=== PATIENT | male | born 1970 | race Caucasian/White ===

== ENCOUNTER 2020-12-24 12:23 | Emergency (ER) | payer OTHER, SELFPAY ==
--- NOTE | ~2020-12-24 | CT_ITS ---
EXAMINATION: CT ABDOMEN AND PELVIS WITHOUT CONTRAST CLINICAL INFORMATION: Left-sided abdominal pain. Rule out kidney stone versus diverticulitis COMPARISON: None TECHNIQUE: Multidetector volumetric imaging was performed from the superior aspect of the liver through the pubic symphysis. Sagittal and coronal reformatted images were obtained on the technologist's workstation. This CT examination was performed using dose optimization techniques as appropriate, variously including the following: *Automated exposure control *Adjustment of mA and/or kV according to patient size (this includes techniques or standardized protocols for targeted exams where dose is matched to indication/reason for exam; i.e. extremities or head) *Use of iterative reconstruction technique DLP: 1223 mGy-cm FINDINGS: LUNG BASES: The visualized lung bases are unremarkable. LIVER, GALLBLADDER, AND BILIARY TREE: The liver is low in attenuation suggestive of fatty infiltration. Liver slightly enlarged, right lobe measuring 20 cm in length. No focal liver lesion is seen. The gallbladder is normal. There is no biliary duct dilatation. PANCREAS: Unremarkable. SPLEEN: Unremarkable. ADRENAL GLANDS: Unremarkable. KIDNEYS AND URETERS: There is cortical thinning or scarring of the upper pole of the right kidney. The kidneys are otherwise normal. BLADDER: Unremarkable. GASTROINTESTINAL TRACT: There is diverticulosis of the colon. There is wall thickening of the distal left or proximal sigmoid colon and stranding of the surrounding fat suggestive of mild diverticulitis. No evidence of obstruction, perforation or abscess is seen. The small and large bowel are otherwise unremarkable. The appendix is unremarkable. ABDOMINAL WALL: No significant hernia is appreciated. LYMPH NODES: Normal. VASCULAR: Unremarkable. PELVIC VISCERA: Unremarkable. OSSEOUS STRUCTURES: Unremarkable. CT/CT abdomen pelvis wo con IMPRESSION: Mild diverticulitis of the distal left/proximal sigmoid colon. Enlarged fatty liver. Cortical thinning or scarring of the right kidney.
[2020-12-24 12:33] VITALS: BP 152/89; PULSE 82; RESP 18; TEMP 36.8; O2SAT 98; BMI 34.0
[2020-12-24 14:00] VITALS: BP 139/89; PULSE 84; RESP 18; TEMP 36.5; O2SAT 97
[2020-12-24 14:42] LABS: MANUAL DIFF FLAG NO
[2020-12-24 14:43] LABS: Basophils Absolute Auto 0.1 X10*3/uL (0.0-0.2); Basophils Percent Auto 0.7 % (0-2); Eosinophils Absolute Auto 0.3 X10*3/uL (0.0-0.4); Eosinophils Percent Auto 2.6 % (0-4); Hematocrit 42.7 % (42-52); Hemoglobin 14.8 g/dl (14.0-18.0); Imm Gran Abs Auto 0.04 X10*3/uL (0.00-0.03); Imm Gran Pct Auto 0.3 % (0.0-0.4); Lymphocytes Absolute Auto 3.3 X10*3/uL (1.2-4.9); Lymphocytes Percent Auto 28.4 % (20-40); Mean Corpuscular HGB Conc 34.7 g/dl (31.0-36.0); Mean Corpuscular Hemoglobin 30.2 pg (27.0-33.0); Mean Corpuscular Volume 87.1 fL (80-98); Mean Platelet Volume 10.3 fL (9.4-12.4); Monocytes Absolute Auto 1.2 X10*3/uL (0.1-1.2); Monocytes Percent Auto 9.9 % (2-11); Neutrophils Absolute Auto 6.7 X10*3/uL (2.0-8.3); Neutrophils Percent Auto 58.1 % (45-73); Platelet Count 360 X10*3/uL (160-400); Red Cell Distribution Width 14.5 % (11.0-16.0); White Blood Count 11.6 X10*3/uL (4.8-10.8)
--- NOTE | 2020-12-24 14:47 | PC.NURSE ---
iv inserted, labs drawn, pt aware we need urine
--- NOTE | 2020-12-24 14:51 | ED.ABDPAIN ---
HPI - Abdominal Pain General Chief Complaint: Abdominal Pain Stated Complaint: low abd pain Time Seen by Provider: 12/24/20 14:50 Source: patient, family and educational interpreter Mode of arrival: ambulatory Limitations: no limitations History of Present Illness HPI narrative: This is a 50-year-old male came in for evaluation of her abdominal pain. Pain started about week ago, pain is left lower abdominal area radiates to left flank area, pain is constant described as dull aching pain 5/10, no releasing factor, no aggravating factor, no other associated symptoms no nausea, no vomiting, no diarrhea, no blood in the urine, no fever, no chills. Never had similar pain in the past. Related Data Previous Rx's Medication Instructions Recorded ciprofloxacin HCl 500 mg tablet 500 mg PO Q12H #20 tab 12/24/20 (Cipro) ibuprofen 400 mg tablet 400 mg PO Q8H PRN #20 tab 12/24/20 metronidazole 500 mg tablet 500 mg PO BID #20 tab 12/24/20 (Flagyl) Allergies Allergy/AdvReac Type Severity Reaction Status Date / Time No Known Allergies Allergy Verified 12/24/20 14:30 Review of Systems Review of Systems All other systems are reviewed and are negative Constitutional: Reports as per HPI and Reports no additional constitutional complaints Eyes: Reports as per HPI and Reports no additional eye complaints Reports system reviewed and no additional complaints, except as documented Cardiovascular: Reports as per HPI and Reports no additional cardiovascular complaints Respiratory: Reports as per HPI and Reports no additional respiratory complaints Gastrointestinal: Reports as per HPI and Reports no additional gastrointestinal complaints Genitourinary: Reports no additional female genitourinary complaints Musculoskeletal: Reports no additional musculoskeletal complaints Skin/Breast: Reports system reviewed and no additional complaints, except as docu Psychiatric: Reports no additional psychiatric complaints Endocrine: Reports no additional endocrine complaints Hematologic/Lymphatic: Reports no additional hematologic/lymphatic complaints Allergic/Immunologic: Reports no additional allergic/immunologic complaints Reports system reviewed and no additional complaints, except as documented and Reports Abnormal speech present Physical Exam Vital Signs: Vital Signs: Last Vital Signs Temp 97.7 F 12/24/20 14:00 Pulse 84 12/24/20 14:00 Resp 18 12/24/20 14:00 BP 139/89 12/24/20 14:00 Pulse Ox 97 12/24/20 14:00 Body Mass Index 34.0 Vital signs have been reviewed as appeared to be correct. Blood pressure normal. Heart rate normal. Respiration rate normal. Temperature normal. Oxygen saturation normal. Appearance: Alert. Oriented X3. No acute distress. Head: Normal external exam. Normocephalic. Atraumatic. No [place] signs noted. No raccoon eyes noted Eyes: PERRLA. EOMI. Conjunctiva and sclera normal. Eyelids normal. ENT: TM's Normal. Pharynx normal. Uvula midline. Moist mucous membranes. No trismus noted. No drooling noted. No muffled voice noted. Neck: Normal inspection. Neck supple. FROM. No adenopathy. Thyroid Normal. No meningeal signs. No neck mass noted. CVS: Normal heart rate and rhythm. Heart sound normal. No murmurs noted. Pulses normal throughout. Respiratory: No respiratory distress. Painless inspiration. Breath sounds normal. No wheezes/rales/rhonchi noted. Chest nontender. No accessory muscle usage noted or decreased air movement noted. Abdomen: Soft, left lower quadrant tenderness, no rebound tenderness, no guarding. Bowel sounds normal in all 4 quadrants. No distention noted. No organomegaly noted. No visible injury noted. Back: No CVA tenderness. Full range of motion noted. Skin: Skin warm and dry. Normal skin color. Normal skin turgor. No rashes/lesions/lacerations noted. Extremities: No lower extremity edema. Extremities exhibit normal range of motion. Extremities nontender. Neuro: Oriented X 3. Cranial nerve exam: II-XII are grossly intact No motor deficit. No sensory deficit. Reflexes normal. Course Course Course Narrative: Assessment and plan. Left side abdominal pain for 1 week, physical exam/CT of the abdomen pelvis confirmed diagnosis of acute diverticulitis without complication, patient would like to go home will discharge home with Cipro and Flagyl and clear diet with follow-up with PCP. MDM - Abdominal Pain Lab Data Attestation: I reviewed the patient's lab results. Result diagrams: 12/24/20 14:37 12/24/20 14:37 Labs: Lab Results 12/24/20 12/24/20 12/24/20 Range/Units 14:37 14:37 15:31 WBC 11.6 H (4.8-10.8) X10*3/uL RBC 4.90 (4.60-5.80) X10*6/uL Hgb 14.8 (14.0-18.0) g/dl Hct 42.7 (42-52) % MCV 87.1 (80-98) fL MCH 30.2 (27.0-33.0) pg MCHC 34.7 (31.0-36.0) g/dl RDW 14.5 (11.0-16.0) % Plt Count 360 (160-400) X10*3/uL MPV 10.3 (9.4-12.4) fL Immature Gran % (Auto) 0.3 (0.0-0.4) % Neut % (Auto) 58.1 (45-73) % Lymph % (Auto) 28.4 (20-40) % [place] % (Auto) 9.9 (2-11) % Eos % (Auto) 2.6 (0-4) % Baso % (Auto) 0.7 (0-2) % Lymph # (Auto) 3.3 (1.2-4.9) X10*3/uL [place] # (Auto) 1.2 (0.1-1.2) X10*3/uL Eos # (Auto) 0.3 (0.0-0.4) X10*3/uL Baso # (Auto) 0.1 (0.0-0.2) X10*3/uL Abs Immat Gran (auto) 0.04 H (0.00-0.03) X10*3/uL Absolute Neuts (auto) 6.7 (2.0-8.3) X10*3/uL Absolute Nucleated RBC 0.000 (0.0-0.012) X10*3/uL Nucleated RBC % (auto) 0.0 (0.0-0.2) /100WBC Sodium 140 (135-145) mmol/L Potassium 3.9 (3.3-5.1) mmol/L Chloride 102 (96-108) mmol/L Carbon Dioxide 28 (22-29) mmol/L Anion Gap 14 (12-20) BUN 19 H (9-16) mg/dL Creatinine 1.06 (0.5-1.4) mg/dL Estim Creat Clear Calc 99.2 Estimated GFR > 60 Random Glucose 117 H (60-115) mg/dL Calcium 9.6 (8.4-10.2) mg/dL Total Bilirubin 0.8 (0.0-1.0) mg/dL AST 22 (5-37) U/L ALT 36 (0-40) U/L Alkaline Phosphatase 83 (39-117) U/L Total Protein 7.9 (6.5-8.0) g/dL Albumin 4.4 (3.5-5.0) g/dL Urine Color YELLOW Urine Appearance CLEAR Urine pH 6.0 (5.0-8.0) Ur Specific [place] >= 1.030 H (1.005-1.025) Urine Protein NEG (NEG-TRACE) MG/DL Urine Glucose (UA) NEG (NEG) MG/DL Urine Ketones NEG (NEG) MG/DL Urine Blood TRACE (NEG) Urine Nitrite NEG (NEG) Ur Leukocyte Esterase NEG (NEG) Imaging Data CT scan - abdomen: Radiologist's impression: Mild diverticulitis of the distal left/proximal sigmoid colon. Enlarged fatty liver. Cortical thinning or scarring of the right kidney. Discharge Plan Discharge Clinical Impression: Diverticulitis Patient Disposition: Home, Self-Care Instructions: Diverticulitis (ED), Diverticulitis Diet (ED) Prescriptions: New ciprofloxacin HCl [Cipro] 500 mg tablet 500 mg PO Q12H Qty: 20 RF: 0 metronidazole [Flagyl] 500 mg tablet 500 mg PO BID Qty: 20 RF: 0 ibuprofen 400 mg tablet 400 mg PO Q8H PRN (Reason: fever or pain) Qty: 20 RF: 0 Referrals: Delon Pickard MD [Primary Care Provider] - 2 days [facility] Past Medical History Medical History Arthritis Diabetes HTN (hypertension) Neuropathy Social History Social History Alcohol intake: never Patient Tobacco Use Status: Never used Tobacco Use of substances other than those prescribed or required for medical reasons: No Advance Directives: No Advance Directives Information Provided: Yes
[2020-12-24 14:56] LABS: Alanine Aminotransferase 36 U/L (0-40); Albumin Level 4.4 g/dL (3.5-5.0); Alkaline Phosphatase 83 U/L (39-117); Anion Gap 14 (12-20); Aspartate Amino Transferase 22 U/L (5-37); Bilirubin Total 0.8 mg/dL (0.0-1.0); Blood Urea Nitrogen 19 mg/dL (9-16); Calcium 9.6 mg/dL (8.4-10.2); Carbon Dioxide 28 mmol/L (22-29); Chloride 102 mmol/L (96-108); Creatinine Clr Calc Pharmacy 99.2; Estimated Glomerular Filt Rate > 60; Glucose Random 117 mg/dL (60-115); Potassium 3.9 mmol/L (3.3-5.1); Sodium 140 mmol/L (135-145); Total Protein 7.9 g/dL (6.5-8.0)
[2020-12-24] MEDS: Morphine Sulfate 2 MG/ML CARTRIDGE 1 MG IVPUSH (15:27)
[2020-12-24] MEDS: Ketorolac Tromethamine 15 MG/ML VIAL IVPUSH (15:28)
--- NOTE | 2020-12-24 15:39 | PC.NURSE ---
patient returned from radiology, pt medicated for pain, vss, urine sent to lab, will continue to monitor.
[2020-12-24 15:42] LABS: Appearance Urine CLEAR; Color Urine YELLOW; Glucose Urine UA NEG (NEG); Leukocyte Esterase Urine NEG (NEG); Nitrite Urine NEG (NEG); Specific Gravity - Urine >= 1.030 (1.005-1.025); UACC Culture Trigger NO; Urine Blood TRACE (NEG); Urine Ketones NEG (NEG); Urine Protein NEG (NEG-TRACE)
[2020-12-24 15:52] LABS: Bacteria Urine TRACE /LPF; RBC Urine 0-2 /HPF (0); Squamous Epithelial Cell Urine 1+ /LPF; WBC Urine 0 /HPF (0-4)
[2020-12-24 15:53] LABS: Mucus Urine TRACE /LPF
[2020-12-24 16:00] VITALS: BP 124/68; PULSE 83; RESP 18; TEMP 36.8; O2SAT 98
[2020-12-24] MEDS: ondansetron HCL 4 MG/2 ML VIAL IVPUSH (16:22)
== END 2020-12-24 16:27 | disposition home or self-care (01) ==
PROVIDERS: Emergency Provider Emergency Medicine; PCP Internal Medicine
DX: K57.30 Diverticulosis of large intestine without perforation or abscess without bleeding (principal); R10.30 Lower abdominal pain, unspecified; Z79.899 Other long term (current) drug therapy
CPT/HCPCS: 36415; 74176; 80053; 81001; 85025; 96374; 96375; 99284; 99285; J1885; J2270; J2405

== ENCOUNTER 2021-04-07 04:54 | Emergency (ER) | payer OTHER, SELFPAY ==
--- NOTE | ~2021-04-07 | CT_ITS ---
EXAMINATION: CT ABDOMEN AND PELVIS WITH CONTRAST CLINICAL INFORMATION: Rule out colitis COMPARISON: Previous CT of the abdomen and pelvis December TECHNIQUE: Multidetector volumetric images were obtained from the superior aspect of the liver through the pubic symphysis following administration 85 mL of Omnipaque 350 intravenous contrast. Sagittal and coronal reformatted images were obtained on the technologist's workstation. Oral contrast: Yes This CT examination was performed using dose optimization techniques as appropriate, variously including the following: *Automated exposure control *Adjustment of mA and/or kV according to patient size (this includes techniques or standardized protocols for targeted exams where dose is matched to indication/reason for exam; i.e. extremities or head) *Use of iterative reconstruction technique DLP: 1052 mGy-cm FINDINGS: LUNG BASES: The visualized lung bases are unremarkable. LIVER, GALLBLADDER, AND BILIARY TREE: The liver is normal in size, shape. The liver is slightly low in attenuation questionable for mild fatty infiltration. No focal hepatic lesion or biliary ductal dilatation is present. The gallbladder is unremarkable with no evidence of radiopaque gallstones, gallbladder wall thickening, or obvious pericholecystic inflammatory changes. PANCREAS: Unremarkable. SPLEEN: Unremarkable. ADRENAL GLANDS: Unremarkable. KIDNEYS AND URETERS: There is cortical thinning or scarring of the upper pole of the right kidney. No hydronephrosis, hydroureter, or calculi seen. No perinephric stranding. BLADDER: Unremarkable. GASTROINTESTINAL TRACT: There is mild diverticulosis of the colon. No bowel wall thickening is seen. There is minimal fat stranding adjacent to the distal left or proximal sigmoid colon posteriorly questionable for very mild diverticulitis or colitis versus residual changes from December 2020 exam. The small and large bowel are otherwise unremarkable. The appendix is unremarkable. ABDOMINAL WALL: No significant hernia is appreciated. LYMPH NODES: Normal. VASCULAR: Unremarkable. PELVIC VISCERA: Unremarkable. OSSEOUS STRUCTURES: Unremarkable. CT/CT abdomen pelvis w con IMPRESSION: Diverticulosis of the colon. Very mild fat stranding posterior to the distal left or proximal sigmoid colon questionable for mild diverticulitis or colitis versus residual changes from December 2020 exam. Fleischner guidelines were followed.
[2021-04-07 05:00] VITALS: BP 128/87; PULSE 136; RESP 24; TEMP 36.6; O2SAT 95; BMI 40.1
--- NOTE | 2021-04-07 08:51 | ED_ITS ---
HPI - Nausea/Vomiting/Diarrhea General Chief complaint: Nausea/Vomiting/Diarrhea Stated complaint: bao Time Seen by Provider: 04/07/21 08:43 Source: patient Mode of arrival: ambulatory Limitations: no limitations History of Present Illness HPI Narrative: The years old patient with history of diabetes, hypertension, hypercholesterolemia, presented to the emergency department with a chief complaint of diarrhea watery and nausea, symptoms started about 3 days ago, he denies any fever chills denies abdominal pain he does have a cramps MD elicited complaint: nausea and diarrhea Onset (ago): day(s) (3 Days ago) Description of diarrhea: watery Associated nausea: Yes Associated abdominal pain: No Location of pain: none Radiation: diffuse Quality: cramping Exacerbating factors: eating Relieving factors: none Associated symptoms: denies other symptoms Related Data Previous Rx's Medication Instructions Recorded ciprofloxacin HCl 500 mg tablet 500 mg PO Q12H #20 tab 12/24/20 (Cipro) ibuprofen 400 mg tablet 400 mg PO Q8H PRN #20 tab 12/24/20 metoclopramide HCl 10 mg tablet 10 mg PO Q6H PRN #7 tab 12/24/20 (Reglan) metronidazole 500 mg tablet 500 mg PO BID #20 tab 12/24/20 (Flagyl) ondansetron HCl 4 mg tablet 4 mg PO Q8H PRN #14 tab 04/07/21 (Zofran) Allergies Allergy/AdvReac Type Severity Reaction Status Date / Time No Known Allergies Allergy Verified 04/07/21 05:00 Review of Systems Review of Systems: Yes all other systems are reviewed and are negative Cardiovascular: Cardiovascular: Reports no additional cardiovascular complaints Respiratory: Respiratory: Reports no additional respiratory complaints Gastrointestinal: Gastrointestinal: Reports GI cramping, Reports diarrhea and Reports nausea Musculoskeletal: Musculoskeletal: Reports no additional musculoskeletal complaints PMFSH Past Medical History Medical History Arthritis Diabetes HTN (hypertension) Neuropathy Social History Social History Alcohol intake: never Patient Tobacco Use Status: Never used Tobacco Advance Directives: No Advance Directives Information Provided: Yes Physical Exam Vital Signs: Vital Signs: Last Vital Signs Temp 97.9 F 04/07/21 05:00 Pulse 136 H 04/07/21 05:00 Resp 24 H 04/07/21 05:00 BP 128/87 04/07/21 05:00 Pulse Ox 95 04/07/21 05:00 BMI result Body Mass Index 40.1 Const: Other: He looks nontoxic, no acute distress General: cooperative Nutritional Appearance: well nourished Orientation/consciousness: patient oriented x3 Limitations: no limitations HENMT: Head: Yes normal to inspection General nose exam: Normal external nose present Face and sinus: Yes normal facial exam Mouth: Normal oral and palatal mucosa present Throat: Yes posterior oropharynx normal Neck: Neck: Yes normal visual inspection, Yes full ROM and Yes no lymphadenopathy Thyroid: Thyroid normal Chest: Chest palpation & inspection: normal inspection of the chest Resp: Effort & Inspection: normal respiratory effort and able to speak in complete sentences Auscultation: clear to auscultation bilaterally Cardio: Jugular venous distension: no JVD Palpation: normal PMI Rhythm: regular rhythm GI: Inspection: Yes normal to inspection Palpation (GI): Soft to palpation, not firm, nontender and no guarding Auscultation: normal bowel sounds Skin: General skin exam: no rashes or lesions noted, elasticity normal and turgor normal Lesions: no lesions Rashes: no rashes Neuro: General: patient oriented x3 Course Reevaluation(s) Reevaluation #1: Re-examined at this time 11:45, he is doing much better years no abdominal pain he has no nausea he has no going to the bathroom since that he has been here, okay for discharge MDM - Nausea/Vomiting/Diarrhea Lab Data Attestation: I reviewed the patient's lab results. Result diagrams: 04/07/21 09:21 04/07/21 09:21 Labs: Lab Results 04/07/21 04/07/21 Range/Units 09:21 09:21 WBC 12.5 H (4.8-10.8) X10*3/uL RBC 5.20 (4.60-5.80) X10*6/uL Hgb 15.8 (14.0-18.0) g/dl Hct 45.1 (42.0-52.0) % MCV 86.7 (80.0-98.0) fL MCH 30.4 (27.0-33.0) pg MCHC 35.0 (31.0-36.0) g/dl RDW 13.8 (11.0-16.0) % Plt Count 353 (160-400) X10*3/uL MPV 10.0 (9.4-12.4) fL Immature Gran % (Auto) 0.6 H (0.0-0.4) % Neut % (Auto) 70.8 (45-73) % Lymph % (Auto) 15.0 L (20-40) % [place] % (Auto) 9.7 (2-11) % Eos % (Auto) 3.7 (0-4) % Baso % (Auto) 0.2 (0-2) % Lymph # (Auto) 1.9 (1.2-4.9) X10*3/uL [place] # (Auto) 1.2 (0.1-1.2) X10*3/uL Eos # (Auto) 0.5 H (0.0-0.4) X10*3/uL Baso # (Auto) 0.0 (0.0-0.2) X10*3/uL Abs Immat Gran (auto) 0.07 H (0.00-0.03) X10*3/uL Absolute Neuts (auto) 8.8 H (2.0-8.3) x10*3/uL Absolute Nucleated RBC 0.000 (0.0-0.012) X10*3/uL Nucleated RBC % (auto) 0.0 (0.0-0.2) /100WBC Sodium 136 (135-145) mmol/L Potassium 4.2 (3.3-5.1) mmol/L Chloride 101 (96-108) mmol/L Carbon Dioxide 25 (22-29) mmol/L Anion Gap 14 (12-20) BUN 29 H (9-16) mg/dL Creatinine 1.31 (0.5-1.4) mg/dL Estim Creat Clear Calc 87.5 Estimated GFR 58 Random Glucose 168 H D (60-115) mg/dL Calcium 8.0 L D (8.4-10.2) mg/dL Total Bilirubin 0.5 (0.0-1.0) mg/dL AST 10 D (5-37) U/L ALT 20 (0-40) U/L Alkaline Phosphatase 105 D (39-117) U/L Total Protein 7.1 (6.5-8.0) g/dL Albumin 3.8 (3.5-5.0) g/dL Imaging Data CT scan - abdomen: Radiologist's impression: GASTROINTESTINAL TRACT: There is mild diverticulosis of the colon. No bowel wall thickening is seen. There is minimal fat stranding adjacent to the distal left or proximal sigmoid colon posteriorly questionable for very mild diverticulitis or colitis versus residual changes from December 2020 exam. The small and large bowel are otherwise unremarkable. The appendix is unremarkable.? ABDOMINAL WALL: No significant hernia is appreciated.? LYMPH NODES: Normal. VASCULAR: Unremarkable. PELVIC VISCERA: Unremarkable.? OSSEOUS STRUCTURES: Unremarkable.? CT/CT abdomen pelvis w con IMPRESSION: Diverticulosis of the colon. Very mild fat stranding posterior to the distal left or proximal sigmoid colon questionable for mild diverticulitis or colitis versus residual changes from December 2020 exam. ? Fleischner guidelines were followed. Discharge Plan Discharge Clinical Impression: Diarrhea Patient Disposition: Home, Self-Care Instructions: Acute Diarrhea (ED) Additional Instructions: Follow-up with your primary care physician, return to the emergency room if you worse, fever, vomiting. Prescriptions: New ondansetron HCl [Zofran] 4 mg tablet 4 mg PO Q8H PRN (Reason: nausea and vomiting) Qty: 14 RF: 0 No Action ciprofloxacin HCl [Cipro] 500 mg tablet 500 mg PO Q12H Qty: 20 RF: 0 metronidazole [Flagyl] 500 mg tablet 500 mg PO BID Qty: 20 RF: 0 ibuprofen 400 mg tablet 400 mg PO Q8H PRN (Reason: fever or pain) Qty: 20 RF: 0 metoclopramide HCl [Reglan] 10 mg tablet 10 mg PO Q6H PRN (Reason: nausea and vomiting) Qty: 7 RF: 0 Interventions: ED Discharge Assessment Last Done: 04/07/21 12:01 Discharge Date/Time: 04/07/21 12:13
[2021-04-07] MEDS: 0.9 % Sodium Chloride 1,000 ML 999 ML IVCONT (09:23)
[2021-04-07] MEDS: ondansetron HCL 4 MG/2 ML VIAL IVPUSH (09:26)
--- NOTE | 2021-04-07 09:26 | PC.NURSE ---
Pt received: Pt AOx4 and c/o diarrhea and nausea for the past 3 days. Pt abd round with generalized tenderness. Heart sounds normal and lungs diminished. Pt amulatory independatly.
[2021-04-07 09:27] LABS: MANUAL DIFF FLAG NO
[2021-04-07 09:28] LABS: Basophils Percent Auto 0.2 % (0-2); Eosinophils Absolute Auto 0.5 X10*3/uL (0.0-0.4); Eosinophils Percent Auto 3.7 % (0-4); Hematocrit 45.1 % (42.0-52.0); Hemoglobin 15.8 g/dl (14.0-18.0); Imm Gran Abs Auto 0.07 X10*3/uL (0.00-0.03); Imm Gran Pct Auto 0.6 % (0.0-0.4); Lymphocytes Absolute Auto 1.9 X10*3/uL (1.2-4.9); Mean Corpuscular Hemoglobin 30.4 pg (27.0-33.0); Mean Corpuscular Volume 86.7 fL (80.0-98.0); Monocytes Absolute Auto 1.2 X10*3/uL (0.1-1.2); Monocytes Percent Auto 9.7 % (2-11); Neutrophils Absolute Auto 8.8 x10*3/uL (2.0-8.3); Neutrophils Percent Auto 70.8 % (45-73); Platelet Count 353 X10*3/uL (160-400); Red Cell Distribution Width 13.8 % (11.0-16.0); White Blood Count 12.5 X10*3/uL (4.8-10.8)
[2021-04-07 09:47] LABS: Alanine Aminotransferase 20 U/L (0-40); Albumin Level 3.8 g/dL (3.5-5.0); Alkaline Phosphatase 105 U/L (39-117); Anion Gap 14 (12-20); Aspartate Amino Transferase 10 U/L (5-37); Bilirubin Total 0.5 mg/dL (0.0-1.0); Blood Urea Nitrogen 29 mg/dL (9-16); Carbon Dioxide 25 mmol/L (22-29); Chloride 101 mmol/L (96-108); Creatinine Clr Calc Pharmacy 87.5; Estimated Glomerular Filt Rate 58; Glucose Random 168 mg/dL (60-115); Potassium 4.2 mmol/L (3.3-5.1); Sodium 136 mmol/L (135-145); Total Protein 7.1 g/dL (6.5-8.0)
[2021-04-07] MEDS: iohexoL 350 MG/ML 100 ML INFUS..BTL IV (10:04)
== END 2021-04-07 12:13 | disposition home or self-care (01) ==
PROVIDERS: Emergency Provider Emergency Medicine
DX: R19.7 Diarrhea, unspecified (principal); R11.0 Nausea; E11.9 Type 2 diabetes mellitus without complications; I10 Essential (primary) hypertension; E78.5 Hyperlipidemia, unspecified
CPT/HCPCS: 36415; 74177; 80053; 85025; 96361; 96374; 99283; 99284; J2405; Q9967

== ENCOUNTER 2022-01-21 15:19 | Outpatient (REF) | payer OTHER, SELFPAY ==
--- NOTE | ~2022-01-21 | XR_ITS ---
EXAMINATION: XR lumbar spine 2-3V CLINICAL INFORMATION: Reason for Exam DISC DISEASE COMPARISON: None TECHNIQUE: 3 views of the lumbar spine FINDINGS: 5 nonrib-bearing lumbar-type vertebral bodies. Vertebral body heights are maintained. Alignment is maintained. Minimal degenerative change and small anterior disc osteophyte complexes. Disc space heights are maintained. Paravertebral soft tissues are unremarkable. XR/XR lumbar spine 2-3V IMPRESSION: Mild spondylosis of the lumbar spine, as above detailed.
== END 2022-01-21 15:20 | disposition home or self-care (01) ==
LOC: HO.XRAY 15:19
PROVIDERS: Visit Provider Psychiatry & Neurology Neurology
DX: M51.9 Unspecified thoracic, thoracolumbar and lumbosacral intervertebral disc disorder (principal)
CPT/HCPCS: 72100

== ENCOUNTER 2023-01-03 20:10 | Emergency (ER) | payer OTHER, SELFPAY ==
[2023-01-03 20:31] VITALS: BP 129/82; PULSE 100; RESP 19; TEMP 36.5; O2SAT 97; BMI 39.8
--- NOTE | 2023-01-03 22:35 | ED.GENADULT ---
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 Patient states that he saw his PCP on Wednesday and was prescribed topical lidocaine which has not decreased his itching. He states that he was given a referral to Dermatology but that he has not heard from the [facility] office yet. Reports that the her itis is unbearable. States that today he noted new areas of the rash to his lateral abdomen and mid back. He denies any fevers. Denies any joint pain or body aches. Denies any known tick bites. States that he is not frequently outdoors. States that the rash is not painful. Denies any new medications or recent changes in medications. MD complaint: Rash Onset (ago): week(s) Location: back, abdomen, upper extremity and lower extremity Severity: severe Quality: other (Pruritic) Relieving factors: none Exacerbating factors: none Associated symptoms: denies other symptoms Treatments prior to arrival: other (Topical lidocaine) Related Data Previous Rx's Medication Instructions Recorded ciprofloxacin HCl 500 mg tablet 500 mg PO Q12H #20 tabs 12/24/20 (Cipro) ibuprofen 400 mg tablet 400 mg PO Q8H PRN fever or pain 12/24/20 #20 tabs metoclopramide HCl 10 mg tablet 10 mg PO Q6H PRN nausea and 12/24/20 (Reglan) vomiting #7 tabs metronidazole 500 mg tablet 500 mg PO BID #20 tabs 12/24/20 (Flagyl) ondansetron HCl 4 mg tablet 4 mg PO Q8H PRN nausea and 04/07/21 (Zofran) vomiting #14 tabs clotrimazole 1 % topical cream 1 appl topical BID 2 weeks #30 01/03/23 grams hydrocortisone 1 % topical cream 1 appl topical TID PRN itching 01/03/23 #28.4 grams Allergies Allergy/AdvReac Type Severity Reaction Status Date / Time No Known Allergies Allergy Verified 04/07/21 05:00 Review of Systems Review of Systems: As per HPI. Yes all other systems are reviewed and are negative Constitutional: Constitutional: Reports as per HPI [facility] Past Medical History Medical History Arthritis Diabetes HTN (hypertension) Neuropathy Social History Social History Alcohol intake: never Patient Tobacco Use Status: Never used Tobacco Advance Directives: No Advance Directives Information Provided: No Physical Exam ED Vital Signs: Vital Signs - 24 hr 01/03/23 20:31 Temperature 97.7 F Pulse Rate 100 Respiratory Rate 19 Blood Pressure 129/82 Pulse Oximetry 97 Oxygen Delivery Method Room Air BMI result Body Mass Index 39.8 Vital signs have been reviewed and appear to be correct. Blood pressure normal. Heart rate normal. Respiratory rate normal. Temperature normal. Oxygen saturation normal. Const General: cooperative, healthy appearing and no acute distress Orientation/consciousness: oriented to person, oriented to place, oriented to time and patient oriented x3 Limitations: no limitations HENMT Other: no oral lesions Head: Yes normocephalic and Yes atraumatic Ears: external ears normal General nose exam: Normal external nose present Face and sinus: Yes face symmetric Mouth: Normal oral and palatal mucosa present, lip normal, oropharynx normal and moist mucous membranes Throat: Yes uvula midline Eyes Pupils: Equal, round and reactive pupils present Neck Neck: Yes normal visual inspection and Yes supple Resp Effort & Inspection: normal respiratory effort and able to speak in complete sentences Auscultation: clear to auscultation bilaterally Cardio Rate: regular rate Rhythm: regular rhythm Heart sounds: S1 normal heart sound present and S2 normal heart sound present GI Palpation (GI): Soft to palpation and nontender Auscultation: normoactive bowel sounds General: Yes no CVA tenderness Back/Spine/Pelvis Back: no CVA tenderness Skin General skin exam: elasticity normal and turgor normal Rashes: rashes noted (Erythematous macules and plaques to right forearm, left leg, left abd/back) macules diffuse color red, morphology annular and surface scaly; fluctuant not assessed Neuro General: oriented to person, oriented to place, oriented to time, patient oriented x3, moves all extremities, no focal motor deficits and CN's II-XI intact bilaterally Cranial nerves: Yes Equal, round and reactive pupils present Cognition (Neuro): normal cognition Extrem General: Yes full ROM, Yes no pedal edema and Yes no calf tenderness Psych Mental Status: mental status grossly normal Affect: normal affect Thought process: Normal thought process present Medical Decision Making Medical Decision Making [facility] Narrative: Patient is a 52-year-old [place]-speaking male presenting to the emergency department with complaint of pruritic rash to arms, legs, trunk for approximately 1 week. On exam patient is awake, A+Ox3, VS WNL, afebrile, normal neurological exam without focal deficits, physical exam as above. Given reported symptoms and physical exam findings, initial differential includes tinea corporis, atopic dermatitis, contact dermatitis. Not consistent with herpes zoster, scabies, bedbugs. Negative Nikolsky's. Do not suspect DRESS, TTP, DIC, meningococcemia, necrotizing fasciitis, SSSS, TEN/SJS, TSS, anaphylaxis. Will prescribe clotrimazole and hydrocortizone cream. Directed patient to follow-up with PCP. Will refer patient to several dermatology offices as patient is unsure which his insurance will cover. Directed patient to wash clothing, towels, bending thoroughly and hot soapy water and not to reuse towels. Return precautions discussed at bedside. Patient verbalized understanding of and agreement with plan. Differential Diagnosis Differential Diagnoses: The differential diagnosis associated with the presentation includes As per MDM. External Record Review External record reviewed: Inpatient record, Office record and Outpatient record Prescription Management I considered prescription management with: Other Discharge Plan Discharge Clinical Impression: Tinea corporis Patient Disposition: Home, Self-Care Instructions: Tinea Corporis (ED) Additional Instructions: Hoy lo evaluaron en el departamento de emergencias por un sarpullido. Delgadillo erupci?n parece compatible con ti?a corporal. Le recetan yemi crema para aplicar sobre la erupci?n dos veces al d?a brenda al menos dos semanas, o m?s hasta que la erupci?n desaparezca. Tambi?n le recetan crema de hidrocortisona para la picaz?n. Aplique las cremas con al menos yemi hora de diferencia. Deje la piel abierta al aire tanto ryan sea posible. Lave todas las toallas, ropa y ropa de cama con lower elwha y jab?n. No reutilice las toallas de ba?o sin lavarlas. Lo derivan a dermatolog?a para yemi mayor evaluaci?n. Llame a delgadillo oficina para programar yemi saqib. Regrese al departamento de emergencias si experimenta un empeoramiento del sarpullido, fiebre de 100.4 F o m?s, v?mitos, secreci?n del sarpullido o cualquier otro s?ntoma preocupante. Prescriptions: New hydrocortisone 1 % cream 1 appl topical TID PRN (Reason: itching) Qty: 28.4 0RF clotrimazole 1 % cream 1 appl topical BID 14 Days Qty: 30 0RF Rx Instructions: Use at least 2 weeks or longer if rash is still present. No Action ciprofloxacin HCl [Cipro] 500 mg tablet 500 mg PO Q12H Qty: 20 0RF metronidazole [Flagyl] 500 mg tablet 500 mg PO BID Qty: 20 0RF ibuprofen 400 mg tablet 400 mg PO Q8H PRN (Reason: fever or pain) Qty: 20 0RF metoclopramide HCl [Reglan] 10 mg tablet 10 mg PO Q6H PRN (Reason: nausea and vomiting) Qty: 7 0RF ondansetron HCl [Zofran] 4 mg tablet 4 mg PO Q8H PRN (Reason: nausea and vomiting) Qty: 14 0RF Referrals: [facility] [Provider Group] [facility] [Provider Group] [facility] [Provider Group] Print Language: [place]
[2023-01-03 22:51] VITALS: BP 133/81; PULSE 89; RESP 20; TEMP 37.1; O2SAT 97
== END 2023-01-04 00:06 | disposition home or self-care (01) ==
PROVIDERS: Emergency Provider Emergency Medicine
DX: B35.4 Tinea corporis (principal)
CPT/HCPCS: 99282

== ENCOUNTER 2024-10-25 02:41 | Emergency (ER) | payer OTHER, SELFPAY ==
--- NOTE | 2024-10-25 | ECG_ITS ---
Test Reason : WEAKNESS Blood Pressure : */* mmHG Vent. Rate : 87 BPM Atrial Rate : 87 BPM P-R Int : 160 ms QRS Dur : 94 ms QT Int : 404 ms P-R-T Axes : 11 -2 100 degrees QTcB Int : 486 ms Normal sinus rhythm Minimal voltage criteria for LVH, may be normal variant ( R in aVL ) Nonspecific ST and T wave abnormality Prolonged QT Abnormal ECG No previous ECGs available Referred By: Generic ED Physician Electronically Signed By: Fantasma García
--- NOTE | ~2024-10-25 | CT_ITS ---
CLINICAL HISTORY: LLQ pain, hx diverticulitis - Patient unable to get IV contrast due to elevated labs - Creat - 1.89 and EGFR - 37. CT abdomen and pelvis without contrast Comparison: None provided Findings: No consolidation or effusion. The gallbladder and solid organs are within normal limits. No renal stones. No bowel obstruction, pneumoperitoneum, or pneumatosis. Noninflamed ascending and descending colonic diverticula. Pelvic contents unremarkable. Normal appendix. No fluid collections or adenopathy. No vascular dilation. No acute fracture. IMPRESSION: No acute findings. No bowel obstruction or biliary obstruction. No obstructive uropathy. Diverticulosis without evidence of diverticulitis. Normal appendix. This document has been electronically signed by: Aviva Posey MD on 10/25/2024 05:22:14
[2024-10-25 02:55] VITALS: BP 90/62; PULSE 84; RESP 14; TEMP 35.6; O2SAT 99; BMI 38.8
--- OUTSIDE RECORDS SUMMARY | 2024-10-25 03:26 | XMS_ITS | Clinical Summary ---
Author Organization [place] [address] [address] [facility] Building Address [address] [place] [address] Phone Care Team Providers Care Mining Consultant Name Role Phone Garima Kumari MD Primary Care Prov ider Allergies No known active allergies Medications acetaminophen (TYLENOL) 500 mg tablet TAKE 1 TABLET BY MOUTH EVERY 6 HOURS NEEDED FOR PAIN FOR UP TO 10 DAYS. 4 Active alfuzosin (UROXATRAL) 10 mg 24 hr tablet Take 1 tablet (10 mg total) by mouth 1 (one) time each day. 1 Active ammonium lactate (LAC-HYDRIN) 12 % lotion Apply to soles of feet daily. At night wear socks to bed Active ARIPiprazole (ABILIFY) 15 mg tablet Take 1 tablet (15 mg total) by mouth 1 (one) time each day in the morning. 4 Active betamethasone valerate (VALISONE) 0.1 % ointment Apply 1 Application topically 2 (two) times a day. 4 Active clotrimazole (LOTRIMIN) 1 % cream APPLY TOPICALLY 3 TIMES DAILY ON SKIN LESIONS 4 Active emtricitabine-ten ofovir alafenamide (Descovy) 200-25 mg per tablet Take 1 tablet by mouth 1 (one) time each day. 1 Active hydrocortisone (ANUSOL-HC) 2.5 % rectal cream Apply rectum BID 0 Active hydrOXYzine HCL (ATARAX) 25 mg tablet Take 1 tablet (25 mg total) by mouth 3 (three) times a day if needed. 3 Active loperamide (IMODIUM) 2 mg capsule Take 1 Capsule by mouth 4 times daily as needed for Diarrhea. 3 Active loratadine (CLARITIN) 10 mg tablet Take 1 tablet (10 mg total) by mouth 1 (one) time each day. 4 Active MELATONIN ORAL Take 1 Tab by mouth daily. Active prazosin (MINIPRESS) 1 mg capsule Take 1 Capsule by mouth at bedtime. 3 Active propranoloL (INDERAL) 20 mg tablet Take 1 tablet (20 mg total) by mouth 1 (one) time each day. 4 Active sildenafiL (VIAGRA) 100 mg tablet Take 100 mg by mouth as needed. Active traZODone (DESYREL) 100 mg tablet Take one every night. 4 Active omeprazole (PriLOSEC) [address] capsule Take 1 capsule (20 mg total) by mouth 1 (one) time each day. 4 Active blood sugar diagnostic (FreeStyle Lite Strips) test strip USE TO TEST BLOOD SUGAR ONCE DAILY E11.9 100 each 3 5 Active blood-glucose meter kit E11.9 Use daily to check sugars 1 each 5 Active freestyle (FreeStyle Lancets) 28 gauge lancets To Test blood sugar once daily E11.9 100 each 3 5 Active gabapentin (NEURONTIN) 300 mg capsule at bedtime 90 capsule 3 5 Active atorvastatin (LIPITOR) 10 mg tablet Take 1 tablet (10 mg total) by mouth 1 (one) time each day. 90 tablet 3 5 Active spironolactone-hy droCHLOROthiazide (ALDACTAZIDE) 25-25 mg per tablet Take 1 tablet (25 mg total) by mouth 1 (one) time each day. 90 each 3 5 026 Active irbesartan (AVAPRO) 150 mg tablet Take 1 tablet (150 mg total) by mouth 1 (one) time each day. 90 each 1 5 Active sertraline (ZOLOFT) 100 mg tablet TAKE 1 TABLET BY MOUTH EVERY DAY 90 tablet 1 5 Active blood-glucose sensor (Dexcom G7 Sensor) deviceIndications :DM (diabetes mellitus), type 2 with neurological complications ([facility] V24, [facility] V28) Change sensor every 10 days. 9 each 1 5 Active semaglutide (Ozempic) 2 mg/dose (8 mg/3 mL) injection penIndications:DM (diabetes mellitus), type 2 with neurological complications ([facility] V24, [facility] V28) Inject 2 mg under the skin every 7 (seven) days. 3 mL 5 5 Active meloxicam (MOBIC) 7.5 mg tablet TAKE 1 TABLET BY MOUTH EVERY DAY 30 tablet 1 5 Active cholecalciferol (VITAMIN D-3) 50 mcg (2,000 unit) capsule TAKE 1 CAPSULE BY MOUTH EVERY DAY 90 capsule 1 5 Active Active Problems Problem Noted Date Diagnosed Date Morbid obesity with BMI of 4 0.0-44.9, adult ([facility] V24, [facility] V28) 01/11/2024 Depression 08/27/2022 Assessment & Plan (05/18/2024 1:07 PM EST): Currently on Trazodone 75mg at night, Abilify, hydroxyzine. Follows regularly with psychiatry. HIV (human immunodeficiency virus infection) ([facility] V24, [facility] V28) 03/16/2022 BPH (benign prostatic hyperplasia) 03/03/2022 Overview (01/11/2024): [facility] group of [facility] DM (diabetes mellitus), type 2 with peripheral vascular complications ([facility] V24, [facility] V28) 03/03/2022 Assessment & Plan (05/18/2024 12:24 PM EST): Erectile dysfunction 03/03/2022 Peripheral neuropathy 02/23/2022 Diverticulitis 01/01/2021 Fatty liver disease, nonalcoholic 01/01/2021 DM (diabetes mellitus), type 2 with neurological complications ([facility] V24, [facility] V28) 09/17/2020 Assessment & Plan (05/18/2024 1:07 PM EST): Well controlled, last hemoglobin A1c was 6.1. Patient is compliant with his medications. Follows with endo. Ozempic 1 mg every week, irbesartan for kidney protection. We will continue gabapentin for neuropathy. We will follow-up in 6 months. PLMD (periodic limb movement disorder) 9 Obstructive sleep apnea 06/03/2018 Overview (01/11/2024): SMS Home Polysomnogram: Date 06/02/2018; TERESO 90, Unclassified apneas 0; Obstructive apneas 487; Central apneas 8; Mixed apneas 0; hypopneas 124; average oxygen saturation 89% (lowest 62% with saturations <88% for 5% or more of study) RBMG Polysomnogram treatment study. Date 08/06/2018. Wt 275#; BMI 41; SE 92 % SM 93 %; spent 43 % of the study in REM. On CPAP @ 10; RDI 0 (AHI 0), Central apneas 0; Obstructive apneas 0; Mixed apneas 0; hypopneas 0; RERAs 0; and, average oxygen saturation was 93%. For the entire study, PLMs ~58. - Obstructive Sleep Apnea - severe; mostly obstructive apneas with hypopneas; with sleep related hypoventilation by 2018 home polysomnogram - 08/06/2018 Pre-study ESS 16. 3/4 RLS symptoms. Hyperlipidemia 05/27/2018 Assessment & Plan (05/18/2024 1:07 PM EST): Currently on atorvastatin 10 mg a day, last LDL increased to 91. Continue same medications for now. If LDL is persistently high, will increase the dose of atorvastatin. Orders: Lipid panel with reflex to direct LDL; Future Hypertension 05/27/2018 Assessment & Plan (05/18/2024 1:07 PM EST): Well controlled, today 116/75, Currently on irbesartan, spironolactone, hydrochlorothiazide. Instructed to follow a low-salt diet and exercise regularly. Encounters Date Type Department Care Team Description 08/18/2024 Telephone Endocrinology - [address] [place], [place] [phone] Amber Quesada PA PRIOR AUTHORIZATION 08/17/2024 4:40 PM EDT Office Visit Endocrinology [address] [phone] Amber Quesada PA DM (diabetes mellitus), type 2 with neurological complications ([facility] V24, [facility] V28) (Primary Dx); Morbid obesity with BMI of 40.0-44.9, adult ([facility] V24, [facility] V28); Primary hypertension; Mixed hyperlipidemia 08/17/2024 1:30 PM EDT Office Visit Orthopedic Surgery [address] [phone] Jesús Scruggs DPM Controlled type 2 diabetes with neuropathy ([facility] V24, [facility] V28) (Primary Dx); Lumbar radiculopathy, right; Arthritis of both feet; Pain in toes of both feet; Dermatophytosis, nail from Last 3 Months Immunizations Name Administration Dates Next Due Influenza Quadravalent, MDCK , 0.5ml, preservative free (Flucelvax) 6mo and older 12/29/2022,03/16/2022,05/27/2018 Pfizer SARS-CoV-2 COVID-19, mRNA, LNP-S, preservative free 01/24/2021 Tdap Tetanus diptheria acell ular pertussis (Boostrix; Adacel) 7yo and older 05/27/2018 Surgical History Surgery Date Site/Laterality Comments OTHER SURGICAL HISTORY PROCEDURE: DENIES PREVIOUS SURGERY COLONOSCOPY PROCEDURE: HISTORICAL COLONOSCOPY COLONOSCOPY PROCEDURE: HISTORICAL COLONOSCOPY; COMMENT: Performed in October 2019-internal hemorrhoids and diverticulosis Medical History Medical History Date Comments HTN (hypertension) DX:HTN (hyper tension) Diverticulosis DX:Diverticulosi s Irritable bowel syndrome DX:Irri table bowel syndrome Esophageal reflux DX:Esophageal reflux Fatty liver DX:Fatty liver; COMMENT: Noted on CT from [facility] in December 2020 Hyperlipidemia DX:Hyperlipidemi a Peripheral neuropathy 02/23/2022 DX:Periphe ral neuropathy DM (diabetes mellitus), type 2 with neurological complications ([facility] V24, [facility] V28) 09/17/2020 DX:DM (diabetes mellitus), t ype 2 with neurological complications ([facility]) DM (diabetes mellitus), type 2 with peripheral vascular complications ([facility] V24, [facility] V28) 03/03/2022 DX:DM (diabetes mellitus), type 2 with peripheral vascular complications ([facility]) Erectile dysfunction 03/03/2022 DX:Erectile dysfunction Morbid obesity with BMI of 4 0.0-44.9, adult ([facility] V24, [facility] V28) 05/27/2018 DX:Morbid obesity wit h BMI of 40.0-44.9, adult ([facility]) BPH (benign prostatic hyperplasia) 03/03/2022 DX:BPH (benign prostatic hyperplasia); COMMENT: [facility] group [facility] HIV (human immunodeficiency virus infection) ([facility] V24, [facility] V28) 03/16/2022 DX:HIV (human im munodeficiency virus infection) ([facility]) Depression 08/27/2022 DX:Depression Family History Medical History Relation Name Comments Heart attack Father Arthritis Mother Diabetes Mother Hypertension Mother Breast cancer Sister 1 50s Hypertension Sister 2 No Known Problems Sister 3 No Known Problems Sister 4 No Known Problems Sister 5 No Known Problems Sister 6 Relation Name Status Comments Father Mother Alive Sister 1 50s Alive Sister 2 Alive Sister 3 Alive Sister 4 Alive Sister 5 Alive Sister 6 Alive Social History Tobacco Use Types Packs/Day Years Used Date Smoking Tobacco: Never Smokeless Tobacco: Never Tobacco Cessation:Counseling Given: Not Answered Alcohol Use Standard Drinks/Week Comments No 0 (1 standard drink = 0.6 oz pur e alcohol) Sex and Gender Information Value Date Recorded Sex Assigned at Not on file Legal Sex Male 2:59 AM EST Gender Identity Not on file Sexual Orientation Not on file Obstetrics History Last Filed Vital Signs Vital Sign Reading Time Taken Comments Blood Pressure 116/80 08/17/2024 4:30 PM EDT C Pulse 66 08/17/2024 4:30 PM EDT Temperature 36.2 C (97.2 F) 08/17/2024 4:30 PM EDT Respiratory Rate 17 05/18/2024 11:36 AM EST Oxygen Saturation 96% 04/18/2024 2:42 PM EST Inhaled Oxygen Concentration - - Weight 122 kg (269 lb) 08/17/2024 4:30 PM EDT Height 177.8 cm (5' 10 ) 08/17/2024 4:30 PM EDT Body Mass Index 38.6 08/17/2024 4:30 PM EDT Plan of Treatment Upcoming Encounters Date Type Department Care Team (Late st Contact Info) Description 11/13/2024 1:15 PM EDT Office Visit Adult Medicine [facility] [address] [place] [address] Garima Kumari MD [address] [place] 11/13/2024 2:45 PM EDT Office Visit Orthopedic Surgery [facility] [address] [phone] Jesús Scruggs DPM [address] [address] 11/16/2024 2:15 PM EDT Office Visit Pulmonolgy [facility] [address] [phone] Gillian Mccarty MD [address] [address] 04/09/2025 2:00 PM EST Office Visit Endocrinology [address] [phone] Amber Quesada PA [address] [place] [phone] Health Maintenance Due Date Last Done Comments Meningococcal ACWY Vaccine (1 - Risk 2-dose series) 1972 MMR Vaccines (1 of 2 - Risk 2-dose series) 1988 Hepatitis A Vaccines (1 of 2 - Risk 2-dose series) 1989 Zoster Vaccines (1 of 2) 1989 Social Influencers of Health Screening 03/14/2022 COVID-19 Vaccine (4 - 2024-25 season) 2023 01/24/2021, 05/24/2020, 05/03/2020 Depression Screening 04/05/2024 08/05/2023 Diabetes: Annual Foot Exam 08/04/2024 08/05/2023 Hepatitis B Vaccines (2 of 2 - CpG 2-dose series) 11/17/2024 10/20/2024 Influenza Vaccine (#1) 2024 , 12/29/2022, 03/16/2022, Additional history exists Diabetes: Annual Urine Albumin-Creatinine Ratio (uACR) 12/21/2024 12/22/2023 Diabetes: Blood Sugar Control Test (HGBA1C) 02/15/2025 08/15/2024, 04/17/2024, 12/22/2023, Additional history exists Diabetes: Annual Retina Eye Exam 04/21/2025 04/21/2024 Diabetes: Annual GFR (Glomerular Filtration Rate) 08/15/2025 08/15/2024, 12/22/2023, 12/22/2023 Hypertension/CHF/CAD Annual BMP Blood Test 08/15/2025 08/15/2024, 12/22/2023, 12/22/2023 DTaP,Tdap,and Td Vaccines (2 - Td or Tdap) 05/27/2028 05/27/2018 Cholesterol Screening (Lipid Panel) 07/03/2029 07/03/2024, 12/22/2023, 12/22/2023 Colorectal Cancer Screening: Colonoscopy 10/11/2029 10/12/2019 Hepatitis C Screening Completed 12/22/2023 Pneumococcal Vaccine: 50+ Years Completed 10/20/2024 HIB Vaccines Aged Out No longer eligi ble based on patient's age to complete this topic HPV Vaccines Aged Out No longer eligi ble based on patient's age to complete this topic IPV Vaccines Aged Out No longer eligi ble based on patient's age to complete this topic Meningococcal B Vaccine Aged Out No l onger eligible based on patient's age to complete this topic RSV Immunization Patients Under 20 months Aged Out No longer eligible based on patient's age to complete this topic Varicella Vaccines Aged Out No longer eligible based on patient's age to complete this topic Procedures Procedure Name Priority Date/Time Associated Diagnosis Comments POC GLUCOSE Routine 08/17/2024 5:10 PM EDT DM (diabetes mellitus), type 2 with neurological complications (CMS/HCC V24, [facility]CC V28) HEMOGLOBIN A1C Routine 08/15/2024 9:31 AM EDT DM (diabetes mellitus), type 2 with neurological complications (CMS/HCC V24, CMS/HCC V28) Obesity (BMI 30-39.9) COMPREHENSIVE METABOLIC PANEL Routine 08/15/2024 9:31 AM EDT DM (diabetes mellitus), type 2 with neurological complications (CMS/HCC V24, CMS/HCC V28) Obesity (BMI 30-39.9) LIPID PANEL WITH REFLEX TO DIRECT LDL Routine 07/03/2024 9:48 AM EDT Mixed hyperlipidemia HEPATITIS C SCREENING Routine 12/22/2023 URINE ALBUMIN CREATININE RATIO Routine 12/22/2023 DEPRESSION SCREENING Routine 08/05/2023 DIABETES FOOT EXAM Routine 08/05/2023 COLONOSCOPY Routine 10/12/2019 from Last 3 Months or Most Recently Relevant to Health Maintenance Results * POC glucose manually resulted (08/17/2024 5:10 PM EDT) Pathologist [facility] Glucose POC 155 mg/dL Comment:Non fasting Blood Capillary blood specimen / Unknown 08/17/2024 5:10 PM EDT Amber LEDEZMA POINT OF CARE TEST ENTER/EDIT OR DERABLES Final Result * Hemoglobin A1c (08/15/2024 9:31 AM EDT) Hemoglobin A1C 6.1 <6.5 % LAB CHEMISTRY METHOD 08/15/2024 2:13 PM EDT [facility] Mean Bld Glu Estim. 128 mg/dL LAB CHEMISTRY METHOD 08/15/2024 2:13 PM [facility] Blood Venous blood specimen / Unknown Venipuncture / Unknown 08/15/2024 9:31 AM EDT 08/15/2024 9:31 AM EDT us Amber LEDEZMA LAB BLOOD ORDERABLES Final Resul t [facility] [address] [place] [address], [place] [phone] * (ABNORMAL) Comprehensive metabolic panel (08/15/2024 9:31 AM EDT) Sodium 140 133 - 145 mmol/L LAB CHEMISTRY METHOD 08/15/2024 2:23 PM [facility] Potassium 3.6 3.5 - 5.5 mmol/L LAB CHEMISTRY METHOD 08/15/2024 2:23 PM [facility] Chloride 104 96 - 110 mmol/L LAB CHEMISTRY METHOD 08/15/2024 2:23 PM [facility] CO2 27 21 - 32 mmol/L LAB CHEMISTRY METHOD 08/15/2024 2:23 PM [facility] Anion Gap 9 3 - 11 LAB CHEMISTRY METHOD 08/15/2024 2:23 PM [facility] Glucose 125(H) 70 - 100 mg/dL LAB CHEMISTRY METHOD 08/15/2024 2:23 PM [facility] BUN 17 5 - 25 mg/dL LAB CHEMISTRY METHOD 08/15/2024 2:23 PM [facility] Creatinine 1.04 0.70 - 1.30 mg/dL LAB CHEMISTRY METHOD 08/15/2024 2:23 PM [facility] eGFR 85 >=60 mL/min/1. 73m2 LAB CHEMISTRY METHOD 08/15/2024 2:23 PM T [facility] Comment:Calculation based on the Chronic Kidney Disease Epidemiology Collaboration (CKD-EPI) equation refit without adjustment for race. BUN/Creatinine Ratio 16.3 LAB CHEMISTRY METHOD 08/15/2024 2:23 PM T [facility] Calcium 8.5 8.5 - 10.5 mg/dL LAB CHEMISTRY METHOD 08/15/2024 2:23 PM [facility] AST (SGOT) 21 10 - 42 unit/L LAB CHEMISTRY METHOD 08/15/2024 2:23 PM [facility] ALT (SGPT) 31 10 - 60 unit/L LAB CHEMISTRY METHOD 08/15/2024 2:23 PM [facility] Alkaline Phosphatase 104 42 - 121 unit/L LAB CHEMISTRY METHOD 08/15/2024 2:23 PM [facility] Total Protein 7.1 6.0 - 8.0 g/dL LAB CHEMISTRY METHOD 08/15/2024 2:23 PM [facility] Albumin 3.7 3.2 - 5.0 g/dL LAB CHEMISTRY METHOD 08/15/2024 2:23 PM [facility] Total Bilirubin 0.6 0.0 - 1.4 mg/dL LAB CHEMISTRY METHOD 08/15/2024 2:23 PM [facility] Blood Venous blood specimen / Unknown Venipuncture / Unknown 08/15/2024 9:31 AM EDT 08/15/2024 9:31 AM EDT us Amber LEDEZMA LAB BLOOD ORDERABLES Final Resul t [facility] [address] [place] [address], [place] [phone] * Lipid panel with reflex to direct LDL (07/03/2024 9:48 AM EDT) Cholesterol 165 0 - 200 mg/dL LAB CHEMISTRY METHOD 07/03/2024 2:07 PM EDT [facility] Triglycerides 122 0 - 150 mg/dL LAB CHEMISTRY METHOD 07/03/2024 2:07 PM EDT [facility] HDL 53 >=40 mg/dL LAB CHEMISTRY METHOD 07/03/2024 2:07 PM EDT [facility] LDL Calculated 88 0 - 100 mg/dL LAB CHEMISTRY METHOD 07/03/2024 2:07 PM EDT [facility] VLDL Cholesterol Dequan 24.4 mg/dL LAB CHEMISTRY METHOD 07/03/2024 2:07 PM EDT [facility] Non HDL Chol. (LDL+VLDL) 112 <145 mg/dL LAB CHEMISTRY METHOD 07/03/2024 2:07 PM T [facility] Chol/HDL Ratio 3.1 0.0 - 4.4 LAB CHEMISTRY METHOD 07/03/2024 2:07 PM EDT [facility] Blood Venous blood specimen / Unknown Venipuncture / Unknown 07/03/2024 9:48 AM EDT 07/03/2024 9:48 AM EDT Garima Kumari MD LAB BLOOD ORDERABL ES Final Result [facility] [address] [place] [address], * Urine Albumin Creatinine Ratio (12/22/2023) [facility] Urine Albumin Creatinine Ratio abstracted Historical Provider HEALTH MAINTENANCE Final Result * Hepatitis C Screening (12/22/2023) [facility] Hepatitis C Screening abstracted Historical Provider HEALTH MAINTENANCE Final Result * Depression Screening (08/05/2023) [facility] Depression Screening abstracted Historical Provider HEALTH MAINTENANCE Final Result * Diabetes Foot Exam (08/05/2023) Diabetes: Annual Foot Exam abstracted [facility] Provider HEALTH MAINTENANCE Final Result * Colonoscopy (10/12/2019) Colonoscopy no interpretation , abstracted Anatomical Region Laterality Modality Other [facility] Provider HEALTH MAINTENANCE Final Result from Last 3 Months or Most Recently Relevant to Health Maintenance Insurance [facility] [address] [employer] Care Teams Mining Consultant Relationship Specialty Start Date End Date Garima Kumari MD [address] [place] [id number] PCP - General Internal Medicine 11/03/21
--- OUTSIDE RECORDS SUMMARY | 2024-10-25 03:26 | XMS_ITS ---
Author Name [facility] Organization Unknown Care Team Organization Name Specialty Phone Email Start Date End Da te [facility] Garima Beebe Primary Care 06/10/2022 11/22/2023 [facility] MATTI VALDOVINOS Primary Care 02/10/2022
[2024-10-25 03:28] LABS: Hematocrit 37.4 % (42.0-52.0); Hemoglobin 13.5 g/dl (14.0-18.0); Mean Corpuscular HGB Conc 36.1 g/dl (31.0-36.0); Mean Corpuscular Hemoglobin 31.3 pg (27.0-33.0); Mean Corpuscular Volume 86.6 fL (80.0-98.0); NRBC Abs Auto 0.000 X10*3/uL (0.0-0.012); NRBC Pct Auto 0.0 /100WBC (0.0-0.2); Platelet Count 275 X10*3/uL (160-400); Red Blood Count 4.32 X10*6/uL (4.60-5.80); White Blood Count 9.0 X10*3/uL (4.8-10.8)
[2024-10-25 03:41] LABS: COVID-19 Test Negative (Negative); IDNOW Serial# 55D5AD1C; IDNOW Serial# 58CA691E; Influenza B2 Negative (Negative)
--- NOTE | 2024-10-25 03:41 | ED_ITS ---
HPI - Nausea/Vomiting/Diarrhea General Chief complaint: Nausea/Vomiting/Diarrhea Stated complaint: n/v Time Seen by Provider: 10/25/24 03:32 Source: patient Mode of arrival: ambulatory Limitations: no limitations History of Present Illness ED Provider: Dr. Mari Rey HPI Narrative: Patient comes to the emergency room complaining of 3 days of nausea, diarrhea and left lower quadrant pain. Patient states that he has history of diverticulitis and he has bradycardia pain this time. Denies fever chills. Related Data Previous Rx's ?Medication ?Instructions ?Recorded ciprofloxacin HCl 500 mg tablet 500 mg PO Q12H #20 tab s 12/24/20 (Cipro) ibuprofen 400 mg tablet 400 mg PO Q8H PRN fever or p ain 12/24/20 #20 tabs metoclopramide HCl 10 mg tablet 10 mg PO Q6H PRN nause a and 12/24/20 (Reglan) vomiting #7 tabs metronidazole 500 mg tablet 500 mg PO BID #20 tabs (Flagyl) ondansetron HCl 4 mg tablet 4 mg PO Q8H PRN nausea and 04/07/21 (Zofran) vomiting #14 tabs clotrimazole 1 % topical cream 1 appl topical BID 2 we eks #30 01/03/23 grams hydrocortisone 1 % topical cream 1 appl topical TID KS N itching 01/03/23 #28.4 grams Allergies Allergy/AdvReac Type Severity Reaction Status Date / Time No Known Allergies Allergy Verified 10/25/24 02:58 Review of Systems 2 Review of Systems: Constitutional : No Weight loss, No Fever, No Chills, No Night Sweats, No Fatigue, No Malaise ENT/Mouth : No Hearing loss, No Ear Pain, No Nasal Congestion, No Sinus Pain, No Hoarseness, No sore throat, No Rhinorrhea, No Swallowing Difficulty Eyes: No Eye Pain, No Swelling, No Redness, No Foreign Body, No Discharge, No Vision Changes Cardiovascular : No Chest Pain, No SOB, No Dyspnea on Exertion, No Orthopnea, No Edema, No Palpitations Respiratory : No Cough, No Sputum, No Wheezing, No Smoke Exposure, No Dyspnea Gastrointestinal : Complaining of nausea, vomiting, 3 days of diarrhea, complaining of left lower quadrant pain Genitourinary : no irregular bleeding, No Dysuria, No Urinary Frequency, No Hematuria, No Urinary Incontinence, No Urgency, No Flank Pain, No Urinary Flow Changes, No Hesitancy Musculoskeletal : No joint pain, No Myalgias, No Joint Swelling Skin : No Skin Lesions, No rash Neuro : No Weakness, No Numbness, No Paresthesias, No Loss of Consciousness, No Dizziness, No Headache Psych : No Anxiety/Panic, No Depression, No SI/HI/AH/VH, No Social Issues, Heme/Lymph: No Bruising, No Bleeding,No Lymphadenopathy Endocrine : No Polyuria, No Polydipsia, No Temperature Intolerance [facility] Past Medical History Medical History Diverticulitis Neuropathy Arthritis HTN (hypertension) Diabetes Social History Social History Alcohol intake: never Patient Tobacco Use Status: Never used Tobacco Smoked in Last 30 Days: No Use of substances other than those prescribed or required for medical reasons: No Advance Directives: No Advance Directives Information Provided: Yes Physical Exam 2 Exam: Exam: Appearance: Alert. Oriented X3. Seems uncomfortable Eyes: Pupils equal, round and reactive to light. ENT: Pharynx normal. Neck: Normal inspection. Neck supple. No lymph nodes noted. No crepitus CVS: Normal heart rate and rhythm. Pulses normal. Normal S1 and S2 Respiratory: No respiratory distress. Breath sounds normal. No Wheezing. No rales Abdomen: Soft, moderate pain to palpation in the left lower quadrant, no rebound or guarding, no distention Skin: Skin warm and dry. Normal skin color. Normal skin turgor. Extremities: No lower extremity edema. No Lacerations. No Rash Neuro: Oriented X 3. No motor deficit. No sensory deficit. Moving all extremities. No slurred speech. CN 2 through 12 grossly intact Psych: calm, cooperative, normal affect Vital Signs: Vital Signs: Last Vital Signs Temp 96.1 F L 10/25/24 02:55 Pulse 77 10/25/24 04:48 Resp 14 10/25/24 02:55 BP 100/60 10/25/24 04:48 Pulse Ox 99 10/25/24 02:55 O2 Del Method Room Air 10/25/24 02:55 BMI result Body Mass Index 38.8 Course Course Course Narrative: Patient complaining of nausea vomiting diarrhea and left lower quadrant pain for 3 days. Patient has history of diverticulitis. Patient receiving IV fluids, Zofran, morphine, CT scan pending Medications Administered Generic Name Dose Route Start Last Admin Trade Name Freq PRN Reason Stop Dose Admin Lactated Ringer's 2,000 mls @ 999 mls/hr 10/25/24 03:45 10/25/24 03:52 Lr IV 10/25/24 05:45 999 mls/hr .Q2H1M CHRISTI Administration Discontinued Medications Generic Name Dose Route Start Last Admin Trade Name Freq PRN Reason Stop Dose Admin Loperamide HCl 4 mg 10/25/24 03:38 10/25/24 03:54 Loperamide Hcl 2 Mg Capsule PO 10/25/24 03:39 4 mg ONCE ONE Administration Morphine Sulfate 4 mg 10/25/24 03:38 10/25/24 03:54 Morphine Sulfate 4 Mg/Ml Cartridge IVPUSH 10/25/24 03:39 4 mg ONCE ONE Administration Protocol Ondansetron HCl 4 mg 10/25/24 03:38 10/25/24 03:54 Ondansetron Hcl 4 Mg/2 Ml Vial IVPUSH 10/25/24 03:39 4 mg ONCE ONE Administration Medical Decision Making Medical Decision Making [facility] Narrative: My interpretation of labs: No significant abnormality in patient's hematology or chemistry, other than a slightly decreased potassium of 3.2 which was repleted p.o. Differential Diagnosis Differential Diagnoses: The differential diagnosis associated with the presentation includes (Diverticulitis, gastroenteritis) Admission/Observation Consideration of admission/observation: Escalation of care including admission/observation considered (Given patient's presentation and symptoms, observation/admission was considered) Lab Data [facility] Lab Attestation statement: I reviewed the patient's lab results. 10/25/24 03:20 10/25/24 03:20 Labs: Lab Results 10/25/24 Range/Units 03:20 WBC 9.0 (4.8-10.8) X10*3/uL RBC 4.32 L (4.60-5.80) X10*6/uL Hgb 13.5 L (14.0-18.0) g/dl Hct 37.4 L (42.0-52.0) % MCV 86.6 (80.0-98.0) fL MCH 31.3 (27.0-33.0) pg MCHC 36.1 H (31.0-36.0) g/dl RDW 14.3 (11.0-16.0) % Plt Count 275 (160-400) X10*3/uL MPV 9.5 (9.4-12.4) fL Absolute Nucleated RBC 0.000 (0.0-0.012) X10*3/uL Nucleated RBC % (auto) 0.0 (0.0-0.2) /100WBC Sodium 138 (135-145) mmol/L Potassium 3.2 L (3.3-5.1) mmol/L Chloride 104 (96-108) mmol/L Carbon Dioxide 23 (22-29) mmol/L Anion Gap 14 (12-20) BUN 49 H (9-16) mg/dL Creatinine 1.89 H (0.5-1.4) mg/dL Estim Creat Clear Calc 56.9 Estimated GFR 37 Random Glucose 145 H (60-115) mg/dL Calcium 8.4 (8.4-10.2) mg/dL Magnesium 2.3 (1.6-2.6) mg/dL Total Bilirubin 0.9 (0.0-1.0) mg/dL Direct Bilirubin 0.4 (0.0-0.5) mg/dL AST 22 (5-37) U/L ALT 16 (0-40) U/L Alkaline Phosphatase 88 (39-117) U/L Total Protein 7.3 (6.5-8.0) g/dL Albumin 4.3 (3.5-5.0) g/dL Lipase 17 (8-78) U/L COVID-19 (NORMAN) Negative (Negative) COVID-19 Clin Com See Note Influenza Type A (VINNIE) Negative (Negative) Influenza Type B (VINNIE) Negative (Negative) Influenza A & B Note See Note Independent Interpretation I performed an independent interpretation of an: CT Scan Radiology Impression Discussion of test interpretation with radiology: I have reviewed the radiologist's reading. Radiologist Impression: No consolidation or effusion. The gallbladder and solid organs are within normal limits. No renal stones. No bowel obstruction, pneumoperitoneum, or pneumatosis. Noninflamed ascending and descending colonic diverticula. Pelvic contents unremarkable. Normal appendix. No fluid collections or adenopathy. No vascular dilation. No acute fracture. IMPRESSION: No acute findings. No bowel obstruction or biliary obstruction. No obstructive uropathy. Diverticulosis without evidence of diverticulitis. Normal appendi Critical Care Time Critical Care Time Critical Care Time: Yes Total Critical Care Time: 45 Attestation: I have personally provided critical care time. Time includes review of lab data, radiology results, discussion with consultants, and monitoring for potential decompensation. Intervention performed as documented. Discharge Plan Discharge Clinical Impression: Diarrhea Patient Disposition: Home, Self-Care Instructions: Acute Diarrhea (ED) Prescriptions: No Action ciprofloxacin HCl [Cipro] 500 mg tablet 500 mg PO Q12H Qty: 20 0RF metronidazole [Flagyl] 500 mg tablet 500 mg PO BID Qty: 20 0RF ibuprofen 400 mg tablet 400 mg PO Q8H PRN (Reason: fever or pain) Qty: 20 0RF metoclopramide HCl [Reglan] 10 mg tablet 10 mg PO Q6H PRN (Reason: nausea and vomiting) Qty: 7 0RF ondansetron HCl [Zofran] 4 mg tablet 4 mg PO Q8H PRN (Reason: nausea and vomiting) Qty: 14 0RF hydrocortisone 1 % cream 1 appl topical TID PRN (Reason: itching) Qty: 28.4 0RF clotrimazole 1 % cream 1 appl topical BID 14 Days Qty: 30 0RF Rx Instructions: Use at least 2 weeks or longer if rash is still present. Print Language: Bulgarian
[2024-10-25 03:42] VITALS: BP 90/41; PULSE 79
[2024-10-25 03:46] LABS: Alanine Aminotransferase 16 U/L (0-40); Albumin Level 4.3 g/dL (3.5-5.0); Alkaline Phosphatase 88 U/L (39-117); Anion Gap 14 (12-20); Aspartate Amino Transferase 22 U/L (5-37); Blood Urea Nitrogen 49 mg/dL (9-16); Calcium 8.4 mg/dL (8.4-10.2); Carbon Dioxide 23 mmol/L (22-29); Chloride 104 mmol/L (96-108); Creatinine Clr Calc Pharmacy 56.9; Estimated Glomerular Filt Rate 37; Lipase 17 U/L (8-78); Magnesium 2.3 mg/dL (1.6-2.6); Potassium 3.2 mmol/L (3.3-5.1); Sodium 138 mmol/L (135-145); Total Protein 7.3 g/dL (6.5-8.0)
[2024-10-25] MEDS: Lactated Ringers 2,000 ML 999 ML IV (03:52)
[2024-10-25 04:09] VITALS: BP 97/57
[2024-10-25 04:48] VITALS: BP 100/60; PULSE 77
[2024-10-25] MEDS: Potassium Chloride ER 20 MEQ TAB.ER.PRT PO (05:44)
[2024-10-25 06:10] VITALS: BP 115/73; PULSE 77; RESP 20; O2SAT 97
[2024-10-25 06:11] VITALS: BP 115/73; PULSE 77; RESP 20; TEMP 35.6; O2SAT 97
== END 2024-10-25 06:11 | disposition home or self-care (01) ==
PROVIDERS: Emergency Provider Emergency Medicine
DX: R19.7 Diarrhea, unspecified (principal); R11.2 Nausea with vomiting, unspecified; R10.32 Left lower quadrant pain; R00.1 Bradycardia, unspecified; R10.2 Pelvic and perineal pain; Z79.899 Other long term (current) drug therapy; Z03.818 Encounter for observation for suspected exposure to other biological agents ruled out
CPT/HCPCS: 74176; 80053; 82248; 83690; 83735; 85027; 87502; 87635; 93005; 96361; 96374; 96375; 99284; J2270; J2405; J7120

== ENCOUNTER → 2024-10-25 03:12 | Outpatient (BNV) | payer OTHER, SELFPAY | PROVIDERS: Emergency Provider Emergency Medicine; Visit Provider Internal Medicine Cardiovascular Disease | DX: R94.31 Abnormal electrocardiogram [ECG] [EKG] (principal); R53.1 Weakness | CPT/HCPCS: 93010 ==

== ENCOUNTER → 2024-10-25 03:39 | Outpatient (BNV) | payer OTHER, SELFPAY | PROVIDERS: Emergency Provider Emergency Medicine; Visit Provider Radiology Diagnostic Radiology | DX: K57.90 Diverticulosis of intestine, part unspecified, without perforation or abscess without bleeding (principal) | CPT/HCPCS: 74176 ==